=== PATIENT | male | born 1990 | race Caucasian/White ===

== ENCOUNTER 2017-05-29 06:28 | Emergency (ER) | payer BC, OTHER ==
[~2017-05-29] VITALS: Ht 170.2 cm; Wt 80.0 kg
[~2017-05-29 06:28] MED LIST: ACET325T96 PO
[2017-05-29 06:32] VITALS: TEMP 36.6; Ht 170.2 cm; Wt 80.0 kg
[2017-05-29] MEDS ORDERED: SODIUM CHLORIDE 0.9% 1000ML 1,000 ML IV STA (06:52)
[2017-05-29 07:04] LABS: BASO % 0.1 %; BASO ABS # 0.01 K/uL (0-0.2); COMPLETE YES; EOS % 3.4 %; HEMATOCRIT 43.6 % (42-52); IG% 0.3 %; LYMPH % 32.2 %; LYMPH ABS # 2.36 K/uL (1.2-3.4); MEAN CELL VOLUME 85.2 fL (80-100); MEAN CORPUSCULAR HEMOGLOBIN 30.5 pg (25-34); MEAN CORPUSCULAR HGB CONC 35.8 g/dl (32-36); MEAN PLATELET VOLUME 10.9 fL (7.4-10.4); MONO % 7.8 %; NEUT % 56.2 %; PLATELET COUNT 174 K/uL (130-400); RED BLOOD COUNT 5.12 M/uL (4.7-6.1); WHITE BLOOD COUNT 7.32 K/uL (4.8-10.8)
[2017-05-29 07:07] LABS: URINE APPEARANCE CLEAR (CLEAR); URINE BILIRUBIN NEG (NEG); URINE COLOR YELLOW; URINE NITRITE NEG (NEG); URINE PH 5.5 (4.5-7.5); URINE SPECIFIC GRAVITY 1.021 (1.000-1.030); UROBILINOGEN NEG (NEG); ZZUR CULT IF INDIC CLEAN CATCH NO
--- NOTE | 2017-05-29 07:08 | EMERGENCY ROOM VISIT NOTE ---
History Report prepared by Vitaliy: Raegan Melvin Under the Supervision of: Dr. Veronique Marie M.D. First contact with patient: 06:36 Chief Complaint: FLANK PAIN Stated Complaint: PAIN IN LEFT SIDE History of Present Illness The patient is a 27 year old male who presents to the Emergency Room with complaints of worsening intermittent left lower quadrant abdominal pain that started 3 days ago. The pain is worse when he is moving around. This morning the pain radiated down into his scrotum and left leg. He states that the pain at that time brought him to his knees. The patient's pain right now is not as severe as it was this morning. He denies difficulty urinating and scrotal swelling. He also denies any testicular pain that does not radiate from his abdomen. Per nursing staff notes, the patient states that it feels like he has to move his bowels. The patient denies any significant past medical history. Source of History: patient, nursing staff Onset: 3 days ago Position: abdomen (LLQ) Timing: intermittent, worsening Modifying Factors (Worsening): movement Associated Symptoms: No urinary symptoms Note: no scrotal swelling, scrotal pain radiating from abdomen otherwise no testicular pain Review of Systems See HPI for pertinent positives & negatives. A total of 10 systems reviewed and were otherwise negative. Past Medical & Surgical Medical Problems: (1) Acromioclavicular joint separation (2) Shoulder injury Surgical Problems: (1) History of eye surgery (2) History of hernia repair Family History Cancer Diabetes mellitus Hypertension Social History Smoking Status: Never Smoker Alcohol Use: occasionally Marital Status: in relationship Housing Status: lives with significant other Current/Historical Medications Scheduled PRN Acetaminophen Tab (Tylenol), 1-2 TAB PO PRN PRN for PRN Allergies Coded Allergies: No Known Allergies (Unverified , 05/29/17) Physical Exam Vital Signs Date Time Temp Pulse Resp B/P (MAP) Pulse Ox O2 Delivery O2 Flow Rate FiO2 05/29/17 07:36 54 16 115/74 98 Room Air 05/29/17 06:32 36.6 54 18 132/86 98 Room Air Physical Exam Vital signs reviewed. General: Well-appearing male, in no significant distress. HEENT: No scleral icterus, PERRLA, neck supple. Atraumatic. Cardiovascular: Regular rate and rhythm, no extra sounds. Pulmonary: Clear to auscultation bilaterally, normal work of breathing. Abdomen: Soft, mild left mid to lower abdominal tenderness, nondistended, positive bowel sounds. Musculoskeletal: Atraumatic, positive left CVA tenderness, no peripheral edema. Neurologic: Patient awake alert and oriented x 3 Skin: Warm, dry, no rash Medical Decision & Procedures ER Provider Diagnostic Interpretation: CT results as stated below per my review and radiologist interpretation: CT SCAN OF THE ABDOMEN AND PELVIS WITHOUT CONTRAST FINDINGS: Lower chest: There are mild dependent atelectatic changes. Liver: The unenhanced liver is normal in size, contour, and attenuation. There is no intrahepatic biliary ductal dilatation. Gallbladder: Unremarkable. Spleen: Normal in size and attenuation. Pancreas: Unremarkable. Adrenal glands: Unremarkable. Kidneys: No renal, ureteral, or bladder calculi are visualized. Bowel: There are no transition zones indicate bowel obstruction. There is a tiny appendicolith. There is no significant appendiceal dilatation. There is infiltration of the fat adjacent to the distal descending colon. Epiploic appendagitis is favored over diverticulitis. There is a moderate amount stool present throughout the colon. Peritoneum: There is no intraperitoneal free air or abdominal ascites. Vasculature: The abdominal aorta is normal in course and caliber. Adenopathy: None. Pelvic viscera: The bladder, and pelvic viscera are unremarkable. Skeletal structures: No destructive osseous lesions are seen. IMPRESSION: 1. No renal, ureteral, or bladder calculi identified 2. No evidence of bowel obstruction. No evidence of free air 3. Infiltration of the fat adjacent to the descending colon. Epiploic appendagitis is favored over diverticulitis. 4. Appendicolith. No evidence of appendiceal dilatation Electronically signed by: Sher Stockton M.D. 05/29/2017 7:24 AM Dictated Date/Time: 05/29/2017 7:20 AM Laboratory Results 05/29/17 06:50 Red Blood Count 5.12, Mean Corpuscular Volume 85.2, Mean Corpuscular Hemoglobin 30.5, Mean Corpuscular Hemoglobin Concent 35.8, Mean Platelet Volume 10.9, Neutrophils (%) (Auto) 56.2, Lymphocytes (%) (Auto) 32.2, Monocytes (%) (Auto) 7.8, Eosinophils (%) (Auto) 3.4, Basophils (%) (Auto) 0.1, Neutrophils # (Auto) 4.11, Lymphocytes # (Auto) 2.36, Monocytes # (Auto) 0.57, Eosinophils # (Auto) 0.25, Basophils # (Auto) 0.01 05/29/17 06:50 Test 05/29/17 00:00 05/29/17 06:50 Urine Color YELLOW Urine Appearance CLEAR (CLEAR) Urine pH 5.5 (4.5-7.5) Urine Specific [place] 1.021 (1.000-1.030) Urine Protein NEG (NEG) Urine Glucose (UA) NEG (NEG) Urine Ketones NEG (NEG) Urine Occult Blood NEG (NEG) Urine Nitrite NEG (NEG) Urine Bilirubin NEG (NEG) Urine Urobilinogen NEG (NEG) Urine Leukocyte Esterase NEG (NEG) White Blood Count 7.32 K/uL (4.8-10.8) Red Blood Count 5.12 M/uL (4.7-6.1) Hemoglobin 15.6 g/dL (14.0-18.0) Hematocrit 43.6 % (42-52) Mean Corpuscular Volume 85.2 fL (80-100) Mean Corpuscular Hemoglobin 30.5 pg (25-34) Mean Corpuscular Hemoglobin Concent 35.8 g/dl (32-36) Platelet Count 174 K/uL (130-400) Mean Platelet Volume 10.9 fL (7.4-10.4) Neutrophils (%) (Auto) 56.2 % Lymphocytes (%) (Auto) 32.2 % Monocytes (%) (Auto) 7.8 % Eosinophils (%) (Auto) 3.4 % Basophils (%) (Auto) 0.1 % Neutrophils # (Auto) 4.11 K/uL (1.4-6.5) Lymphocytes # (Auto) 2.36 K/uL (1.2-3.4) Monocytes # (Auto) 0.57 K/uL (0.11-0.59) Eosinophils # (Auto) 0.25 K/uL (0-0.5) Basophils # (Auto) 0.01 K/uL (0-0.2) RDW Standard Deviation 38.4 fL (36.4-46.3) RDW Coefficient of Variation 12.2 % (11.5-14.5) Immature Granulocyte % (Auto) 0.3 % Immature Granulocyte # (Auto) 0.02 K/uL (0.00-0.02) Anion Gap 4.0 mmol/L (3-11) Est Creatinine Clear Calc Drug Dose 112.6 ml/min Estimated GFR () 119.6 Estimated GFR (Non- 103.2 BUN/Creatinine Ratio 15.1 (10-20) Calcium Level 9.2 mg/dl (8.5-10.1) Total Bilirubin 0.3 mg/dl (0.2-1) Direct Bilirubin 0.1 mg/dl (0-0.2) Aspartate Amino Transf (AST/SGOT) 17 U/L (15-37) Alanine Aminotransferase (ALT/SGPT) 38 U/L (12-78) Alkaline Phosphatase 85 U/L (45-117) Total Protein 7.1 gm/dl (6.4-8.2) Albumin 4.0 gm/dl (3.4-5.0) Laboratory results per my review. Medications Administered Medications (Trade) Dose Ordered Sig/Connie Route Start Time Stop Time Status Last Admin Dose Admin Sodium Chloride 1,000 ml @ 999 mls/hr Q1H1M STAT IV 05/29/17 06:52 05/29/17 07:52 DC 05/29/17 07:02 999 MLS/HR Ketorolac Tromethamine (Toradol Inj) 30 mg NOW STAT IV 05/29/17 07:41 05/29/17 07:42 DC 05/29/17 07:54 30 MG ED Course 0650: Past medical records reviewed. The patient was evaluated in room A10. A complete history and physical examination was performed. 0652: Ordered Sodium Chloride 1000 ml @ 999 mls/hr IV 0741: Ordered Toradol Inj 30 mg IV 0744: Upon reevaluation, the patient appeared to have improvement of his symptoms. I discussed findings with him. He verbalized agreement of the treatment plan. He was discharged home. Medical Decision Differential diagnoses includes renal colic, appendicitis, diverticulitis, mesenteric ischemia, aortic pathology, infections, inflammatory bowel disease, PUD, biliary pathology, UTI. Medication Reconciliation: I attest that I have personally reviewed the patient' s current medication list. Blood Pressure Screening: Patient was found to have normal blood pressure on screening and does not require follow-up. This patient was evaluated and appeared to be in no significant distress. Physical examination reveals some left lower quadrant abdominal tenderness to palpation. CT scan of the abdomen and pelvis was performed and reveals evidence of epiploic appendage enteritis. UA is negative. White blood cell count is normal. Patient was informed of the findings. He was given Toradol 30 mg IV. He was asked to use ibuprofen as needed for pain and drink plenty of clear fluids. Patient will follow-up with his physician this week and return to the ER for worsening of symptoms or any medical concerns. Impression Primary Impression: Epiploic appendagitis Scribe Attestation The scribe's documentation has been prepared under my direction and personally reviewed by me in its entirety. I confirm that the note above accurately reflects all work, treatment, procedures, and medical decision making performed by me. Departure Information Dispostion Home / Self-Care Referrals No Doctor, Assigned (PCP) Forms HOME CARE DOCUMENTATION FORM, IMPORTANT VISIT INFORMATION Patient Instructions My [facility] Additional Instructions Diagnosis: Epiploic Appendigitis Ibuprofen 600 mg every 6 hours as needed for pain with food. Drink plenty of clear fluids. Follow up with your doctor this week for reevaluation. Return to the ED for worsening of symptoms or any medical concerns.
[2017-05-29 07:09] LABS: MANUAL MICROSCOPIC REQUIRED? NO; REVIEW REQ? NO
--- NOTE | 2017-05-29 07:26 | DIAGNOSTIC IMAGING REPORT ---
CT SCAN OF THE ABDOMEN AND PELVIS WITHOUT CONTRAST CLINICAL HISTORY: Left flank pain COMPARISON STUDY: No previous studies for comparison. TECHNIQUE: CT scan of the abdomen and pelvis was performed from the lung bases to the proximal femurs. Images are reviewed in the axial, sagittal, and coronal planes. IV contrast was not administered for this examination. CT DOSE: 864.05 mGy.cm FINDINGS: Lower chest: There are mild dependent atelectatic changes. Liver: The unenhanced liver is normal in size, contour, and attenuation. There is no intrahepatic biliary ductal dilatation. Gallbladder: Unremarkable. Spleen: Normal in size and attenuation. Pancreas: Unremarkable. Adrenal glands: Unremarkable. Kidneys: No renal, ureteral, or bladder calculi are visualized. Bowel: There are no transition zones indicate bowel obstruction. There is a tiny appendicolith. There is no significant appendiceal dilatation. There is infiltration of the fat adjacent to the distal descending colon. Epiploic appendagitis is favored over diverticulitis. There is a moderate amount stool present throughout the colon. Peritoneum: There is no intraperitoneal free air or abdominal ascites. Vasculature: The abdominal aorta is normal in course and caliber. Adenopathy: None. Pelvic viscera: The bladder, and pelvic viscera are unremarkable. Skeletal structures: No destructive osseous lesions are seen. IMPRESSION: 1. No renal, ureteral, or bladder calculi identified 2. No evidence of bowel obstruction. No evidence of free air 3. Infiltration of the fat adjacent to the descending colon. Epiploic appendagitis is favored over diverticulitis. 4. Appendicolith. No evidence of appendiceal dilatation Electronically signed by: Sher Stockton M.D. 05/29/2017 7:24 AM Dictated Date/Time: 05/29/2017 7:20 AM
[2017-05-29 07:33] LABS: BUN/CREATININE RATIO 15.1 (10-20); CALCIUM 9.2 mg/dl (8.5-10.1); CREATININE 0.99 mg/dl (0.60-1.40); POTASSIUM 3.7 mmol/L (3.5-5.1)
[2017-05-29 07:36] VITALS: BP 115/74; PULSE 54; O2SAT 98
[2017-05-29] MEDS ORDERED: KETOROLAC TROMETHAMINE 30 MG/ML VIAL IV STA (07:41)
== END 2017-05-29 08:03 | disposition home or self-care (01) ==
LOC: C.EDB 06:29 → C.EDA 08:03
DX: Q43.8 Other specified congenital malformations of intestine (principal); Z83.3 Family history of diabetes mellitus; Z82.49 Family history of ischemic heart disease and other diseases of the circulatory system; K63.89 Other specified diseases of intestine